=== PATIENT | female | born 1990 | race Caucasian/White ===

== ENCOUNTER 2021-07-02 11:12 | Emergency (ER) | payer OTHER, SELFPAY ==
[2021-07-02 11:13] VITALS: BP 133/91; PULSE 84; RESP 16; TEMP 37.2; O2SAT 100; BMI 20.7
--- NOTE | 2021-07-02 12:00 | EX.ED.DYSGE1 ---
HPI History of Present Illness Chief Complaint: Fatigue Informant: patient Onset/Context/Timing Onset: Month(s) (2) Context: Gradual Onset Timing: Continuous Quality: Fatigue Location: Generalized Worsened by: Nothing Relieved by: Resting Associated Symptoms Associated Symptoms: Dizziness Narrative Narrative: Patient presents with fatigue for the past 2 months. Patient states it is gradually getting worse. Patient states he feels tired all over. Patient states it gets better after some rest. Patient also admits to some dizziness and lightheadedness. Patient states she has a history of adrenal insufficiency and thinks it may be related to that. Patient states her primary care physician ordered an outpatient cortisol stimulation test. Patient states her primary care physician also referred her to the emergency department for a cortisol level to be drawn today. Patient admits to nausea. Patient denies any chest pain or shortness of breath. Patient admits to some urinary frequency but denies any dysuria or hematuria. PFSH PFS Medical History Anxiety History of adrenal disorder History of frequent headaches History of PCOS Non-smoker Home Medications citalopram 40 mg tablet 40 mg PO DAILY 03/05/21 [History Last Taken Unknown] multivitamin 1 tab PO DAILY 03/05/21 [History Last Taken Unknown] Allergy/AdvReac Type Severity Reaction Status Date / Time No Known Allergies Allergy Unverified 07/02/21 11:16 Family History Mother Arthritis Hypertension CVA (cerebral vascular accident) Grandmother Arthritis Thyroid disorder Aunt Breast cancer Surgical History History of foot surgery Social History household members: spouse current occupational status: employed 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 history of recent travel: No sexually active: Yes Smoking Status: Never smoker alcohol intake: never substance use type: does not use what type of physical activity do you participate in: other seatbelt use: always do you feel safe at home: Yes additional social history: - Akash CAST ROS ED Constitutional Constitutional ED: Denies chills or fever(s) Eyes Eyes: Denies blurry vision or change in vision ENT ENT ED: Denies rhinorrhea or sore throat Cardiovascular Cardiovascular: Denies chest pain or palpitations Respiratory/Chest Respiratory/Chest: Denies cough or dyspnea Gastrointestinal Gastrointestinal: Reports nausea; Denies vomiting Genitourinary Genitourinary ED: Reports urinary frequency; Denies dysuria or hematuria Musculoskeletal Musculoskeletal: Reports back pain; Denies neck pain Integumentary Denies abscess or rash Neurologic Neurologic: Reports headache(s) and weakness Allergic/Immunologic Allergic/Immunologic ED: Denies mouth swelling or urticaria EXAM Physical Exam Const Vital Signs: 07/02/21 11:13 Temperature 98.9 F Temperature Source Temporal Pulse Rate 84 Respiratory Rate 16 Blood Pressure 133/91 H Blood Pressure Mean 105 Pulse Ox 100 Oxygen Delivery Method Room Air Positive well nourished and well developed General Appearance ED: well developed HEENT Reports moist mucous membranes Neck supple and no JVD Resp normal respiratory effort and clear to auscultation bilaterally Cardio regular rate, regular rhythm and no murmurs GI normal to inspection, nondistended, normoactive bowel sounds and non-tender Palpation: soft Extremity normal to inspection General Extremety ED: Negative for edema or tenderness General Extremity: Negative for edema Neuro oriented x3, CN's II-XII intact bilaterally and no sensory deficits noted Sensorium / Orientation: alert Motor Exam: strength 5/5 throughout Psych mental status grossly normal Skin no rashes or lesions noted MDM MDM MDM Narrative Medical decision making narrative: Patient was given IV fluids. CBC shows a white blood cell count of 4.0. Comprehensive metabolic profile was essentially within normal limits. Serum cortisol level was slightly elevated at 24.2. Urinalysis does not show any evidence of urinary tract infection. Patient was advised of her findings. Patient was instructed to follow-up with her primary care physician in 5 to 7 days. Patient was instructed to follow-up with the cortisol stimulation test as an outpatient. Patient was instructed return if worse in any way. Patient and understood and were agreeable with the plan. All questions were answered. Discharge Plan Triage Chief Complaint: Fatigue ED Provider: Az Lowe Dx/Rx/DC Orders Clinical Impression: Fatigue Instructions: ED Weakness (Uncertain Cause) Prescriptions: No Action citalopram 40 mg tablet 10 mg PO DAILY RF: 0 multivitamin Tablet 1 tab PO DAILY RF: 0 Primary Care Provider: Lisa Clay NP Referrals: Lisa Clay NP, CURATOR OF EDUCATION-C [Primary Care Provider] - 5-7 Days Disposition Disposition: Home, Self Care
[2021-07-02 12:27] LABS: Absolute Lymphocyte Count 0.67 X10^3/uL (0.83-4.51); Basophil# 0.02 X10^3/uL; Basophil% 0.5 % (0-1); Eosinophil# 0.01 X10^3/uL; Eosinophils% 0.3 % (0-5); Hematocrit 40.9 % (37-47); Hemoglobin 13.8 g/dL (12.0-15.0); Lymphocyte # 0.67 X10^3/ul (0.83-4.51); Lymphocyte % 16.9 % (19-41); Mean Corp Hgb Conc 33.7 g/dL (32-36); Mean Corpuscular Hgb 32.5 pg (27.0-32.0); Mean Corpuscular Volume 96.2 fL (81-99); Mean Platelet Vol. 9.1 fl (6.2-12.0); Monocyte# 0.23 X10^3/uL; Monocyte% 5.8 % (0-10); NRBC Flagged by Analyzer 0 % (0-5); Neutrophil # 3.03 X10^3/uL (2.7-7.7); Neutrophil % 76.2 % (47-70); Platelet Count 153 K/mm3 (150-450); RBC Distribution Width CV 11.9 % (11.6-14.6); Red Blood Count 4.25 M/mm3 (4.2-5.4)
[2021-07-02 12:40] LABS: ALB/GLOB Ratio 1.2 RATIO (0.9-2.4); AST(SGOT) 47 U/L (15-37); Alanine Aminotransfer ALT/SGPT 152 U/L (13-56); Albumin, Serum 4.3 g/dL (3.2-5.0); Alkaline Phosphatase 60 U/L (45-117); Anion Gap 7 (5-15); BUN 11 mg/dL (7-18); BUN/Creat Ratio 13.7 RATIO (10-20); Calcium,Total 9.1 mg/dL (8.5-10.1); Chloride 105 mmol/L (98-107); EST Glomerular Filtration Rate 88 mL/min (>60); Est Glom Filt Rate - Afr Amer 107 mL/min (>60); Estimated Creatinine Clearance 105.79 ml/min; Globulin 3.7 g/dL (2.2-4.2); Glucose 104 mg/dL (74-106); Potassium 3.9 mmol/L (3.5-5.1); Sodium Level 140 mmol/L (136-145)
[2021-07-02 13:20] VITALS: PULSE 62; RESP 15; O2SAT 100
[2021-07-02 13:36] LABS: Mucous, Urine 0 SEEN /hpf (<or=2+); Red Blood Cells-Urine 0 SEEN /hpf (0-5); Squamous Epithelial Cells - UA 0 SEEN /hpf (5-10); White Blood Cells 0 SEEN /hpf (0-5)
[2021-07-02 13:45] LABS: Color, Urine Yellow (Yellow); Glucose, Dipstick Normal (Normal); Ketone-Dipstick Negative (Negative); Leukocyte Esterase-Dipstick Negative /ul (Negative); Nitrite-Dipstick Negative (Negative); Occult Blood-Urine Negative /ul (Negative); Protein-Dipstick Negative (Negative); Specific Gravity, Urine 1.015 (1.002-1.030); Urine Bilirubin Dipstick Negative (Negative); Urine Clarity Cloudy (Clear); Urine Urobilinogen Normal (Normal)
[2021-07-02 13:55] LABS: Amorphous Sediment 3+; Bacteria 1+ /hpf (None Seen)
[2021-07-02 15:03] VITALS: BP 122/74; PULSE 88; RESP 15; O2SAT 98
== END 2021-07-02 15:04 | disposition home or self-care (01) ==
PROVIDERS: Emergency Provider Emergency Medicine; PCP Nurse Practitioner
DX: R53.83 Other fatigue (principal); F41.9 Anxiety disorder, unspecified; Z79.899 Other long term (current) drug therapy
CPT/HCPCS: 80053; 81001; 82533; 85025; 99283; J7030; A4216

== ENCOUNTER 2021-11-12 08:14 | Outpatient (CLI) | payer OTHER, SELFPAY ==
--- NOTE | 2021-11-12 08:20 | US_ITS ---
STUDY: ULTRASOUND OF THE FEMALE PELVIS - COMPLETE REASON FOR EXAM: Female, 30 years old. Infertility -- AUB LMP: 10/29/2021. TECHNIQUE: Transabdominal and Transvaginal TECHNICAL QUALITY: Adequate. COMPARISON: None. FINDINGS: The uterus is retroverted and is in a midline position. The uterus measures 7.1 cm x 5.5 cm x 4.6 cm. Normal uterine cervix. The endometrium measures 2.0 mm in thickness, and is hyperechoic. There is no demonstrated endometrial mass. There is no demonstrated myometrial mass. I.U.D. - The patient does not have an I.U.D. The right ovary is visualized. The right ovary measures 3 cm x 2.7 cm x 2.2 cm. There is no right ovarian cyst or ovarian mass. There is no visualized right adnexal mass or complex lesion. There is normal arterial and normal venous vascularity. The left ovary is visualized. The left ovary measures 1.6 cm x 1.9 cm x 1.7 cm. There is no left ovarian cyst or ovarian mass. There is no visualized left adnexal mass or complex lesion. There is normal arterial and normal venous vascularity. There is minimal fluid in the cul-de-sac. The pre void volume of the bladder was 363 ml. US/Transvaginal Non- IMPRESSION: Normal female pelvis. Electronically Signed: Chirag Green MD at 14:03 EST ,
--- NOTE | 2021-11-12 08:20 | US_ITS ---
STUDY: ULTRASOUND OF THE FEMALE PELVIS - COMPLETE REASON FOR EXAM: Female, 30 years old. Infertility -- AUB LMP: 10/29/2021. TECHNIQUE: Transabdominal and Transvaginal TECHNICAL QUALITY: Adequate. COMPARISON: None. FINDINGS: The uterus is retroverted and is in a midline position. The uterus measures 7.1 cm x 5.5 cm x 4.6 cm. Normal uterine cervix. The endometrium measures 2.0 mm in thickness, and is hyperechoic. There is no demonstrated endometrial mass. There is no demonstrated myometrial mass. I.U.D. - The patient does not have an I.U.D. The right ovary is visualized. The right ovary measures 3 cm x 2.7 cm x 2.2 cm. There is no right ovarian cyst or ovarian mass. There is no visualized right adnexal mass or complex lesion. There is normal arterial and normal venous vascularity. The left ovary is visualized. The left ovary measures 1.6 cm x 1.9 cm x 1.7 cm. There is no left ovarian cyst or ovarian mass. There is no visualized left adnexal mass or complex lesion. There is normal arterial and normal venous vascularity. There is minimal fluid in the cul-de-sac. The pre void volume of the bladder was 363 ml. US/Pelvic (Non ) IMPRESSION: Normal female pelvis. Electronically Signed: Chirag Green MD at 14:03 EST ,
== END 2021-11-12 23:59 | disposition home or self-care (01) ==
PROVIDERS: PCP Nurse Practitioner; Referring Provider Obstetrics & Gynecology; Visit Provider Obstetrics & Gynecology
DX: N97.9 Female infertility, unspecified (principal); N93.9 Abnormal uterine and vaginal bleeding, unspecified
CPT/HCPCS: 76830; 76856

== ENCOUNTER 2021-12-09 09:14 | Outpatient (CLI) | payer OTHER, SELFPAY ==
[2021-12-09 10:10] LABS: Estradiol 21.1 pg/mL; Follicle Stimulating Hormone 2.2 mIU/mL; Prolactin 3.8 ng/mL
[2021-12-11 14:11] LABS: DHEA Sulfate 74.4 ug/dL (84.8-378.0)
[2021-12-11 14:41] LABS: Testosterone Free 0.4 pg/mL (0.0-4.2)
[2021-12-13 22:11] LABS: 17-Hydroxyprogesterone 27 ng/dL (.)
== END 2021-12-09 23:59 | disposition home or self-care (01) ==
LOC: PAVLAB 09:15
PROVIDERS: PCP Nurse Practitioner; Referring Provider Obstetrics & Gynecology; Visit Provider Obstetrics & Gynecology
DX: N97.9 Female infertility, unspecified (principal); N93.9 Abnormal uterine and vaginal bleeding, unspecified; Z87.42 Personal history of other diseases of the female genital tract
CPT/HCPCS: 36415; 82627; 82670; 83001; 83498; 84146; 84402; 84443; 82626

== ENCOUNTER → 2022-04-22 | Outpatient (CLI) | payer OTHER, SELFPAY ==
[2022-04-24 12:58] LABS: DHEA Sulfate 97.9 ug/dL (84.8-378.0)
== END | disposition home or self-care (01) ==
LOC: PAVLAB 09:14
PROVIDERS: PCP Nurse Practitioner; Referring Provider Obstetrics & Gynecology; Visit Provider Obstetrics & Gynecology
DX: N93.9 Abnormal uterine and vaginal bleeding, unspecified (principal)
CPT/HCPCS: 36415; 82627; 82626

== ENCOUNTER → 2022-06-02 | Outpatient (CLI) | payer OTHER, SELFPAY ==
[2022-06-02 10:04] LABS: Progesterone Level 11.78 ng/mL (See Comment)
== END | disposition home or self-care (01) ==
LOC: PAVLAB 09:09
PROVIDERS: Referring Provider Obstetrics & Gynecology; Visit Provider Obstetrics & Gynecology
DX: E28.2 Polycystic ovarian syndrome (principal)
CPT/HCPCS: 36415; 84144

== ENCOUNTER → 2022-12-18 | Outpatient (CLI) | payer OTHER, SELFPAY ==
[2022-12-22 01:06] LABS: Chlamydia By Nucleic Acid AMP Negative (Negative)
[2022-12-22 12:25] LABS: Gonococcus By Nucleic Acid AMP Negative (Negative)
[2022-12-27 09:02] LABS: HPV APTIMA, High Risk Negative (Negative)
== END | disposition home or self-care (01) ==
LOC: LABSPEC 13:33
PROVIDERS: Referring Provider Obstetrics & Gynecology; Visit Provider Obstetrics & Gynecology
DX: O09.90 Supervision of high risk pregnancy, unspecified, unspecified trimester (principal)
CPT/HCPCS: 87086; 87088; 87491; 87591; 87624; 88175; G0145

== ENCOUNTER → 2023-01-15 | Outpatient (CLI) | payer OTHER, SELFPAY ==
[2023-01-15 11:03] LABS: Absolute Lymphocyte Count 0.94 X10^3/uL (0.83-4.51); Absolute Neutrophil Count 5.2 X10^3/uL (2.0-7.7); Basophil# 0.03 X10^3/uL; Basophil% 0.5 % (0-1); Eosinophil# 0.02 X10^3/uL; Eosinophils% 0.3 % (0-5); Hematocrit 36.3 % (37-47); Hemoglobin 12.3 g/dL (12.0-15.0); Lymphocyte # 0.94 X10^3/ul (0.83-4.51); Lymphocyte % 14.3 % (19-41); Mean Corp Hgb Conc 33.9 g/dL (32-36); Mean Corpuscular Hgb 33.1 pg (27.0-32.0); Mean Corpuscular Volume 97.6 fL (81-99); Mean Platelet Vol. 8.3 fl (6.2-12.0); Monocyte# 0.37 X10^3/uL; Monocyte% 5.6 % (0-10); NRBC Flagged by Analyzer 0 % (0-5); Neutrophil % 78.8 % (47-70); Platelet Count 189 K/mm3 (150-450); RBC Distribution Width CV 13.1 % (11.6-14.6); RBC Distribution Width SD 46.4 fl (35.1-43.9); Red Blood Count 3.72 M/mm3 (4.2-5.4); White Blood Count 6.6 K/mm3 (4.4-11.0)
[2023-01-15 11:55] LABS: NATERA MAILED SPECIMEN
[2023-01-15 12:17] LABS: HIV - WCH Non-Reactive (Nonreactive); Hepatitis B Surface Antigen Non-Reactive (Nonreactive); Hepatitis C Antibody Non-Reactive (Nonreactive); Rubella IgG Reactive (Nonreactive); Syphilis Antibodies Non-reactive
== END | disposition home or self-care (01) ==
LOC: PAVLAB 10:45
PROVIDERS: Referring Provider Obstetrics & Gynecology; Visit Provider Obstetrics & Gynecology
DX: O09.90 Supervision of high risk pregnancy, unspecified, unspecified trimester (principal)
CPT/HCPCS: 36415; 85025; 86703; 86762; 86780; 86803; 86850; 86900; 86901; 87340

== ENCOUNTER → 2023-04-24 | Outpatient (CLI) | payer OTHER, SELFPAY ==
[2023-04-24 12:27] LABS: Absolute Lymphocyte Count 0.84 X10^3/uL (0.83-4.51); Absolute Neutrophil Count 5.3 X10^3/uL (2.0-7.7); Basophil# 0.02 X10^3/uL; Basophil% 0.3 % (0-1); Eosinophil# 0.02 X10^3/uL; Eosinophils% 0.3 % (0-5); Hematocrit 33.3 % (37-47); Lymphocyte # 0.84 X10^3/ul (0.83-4.51); Lymphocyte % 12.9 % (19-41); Mean Corpuscular Hgb 33.5 pg (27.0-32.0); Mean Corpuscular Volume 101.5 fL (81-99); Mean Platelet Vol. 8.6 fl (6.2-12.0); Monocyte# 0.32 X10^3/uL; Monocyte% 4.9 % (0-10); NRBC Flagged by Analyzer 0 % (0-5); Neutrophil # 5.28 X10^3/uL (2.7-7.7); Neutrophil % 81.1 % (47-70); Platelet Count 172 K/mm3 (150-450); RBC Distribution Width CV 12.5 % (11.6-14.6); Red Blood Count 3.28 M/mm3 (4.2-5.4); White Blood Count 6.5 K/mm3 (4.4-11.0)
[2023-04-24 12:45] LABS: Glucose Challenge Gest 1H 50g 93 mg/dL (70-140)
[2023-04-24 13:31] LABS: HIV - WCH Non-Reactive (Nonreactive); Syphilis Antibodies Non-reactive
== END | disposition home or self-care (01) ==
LOC: LAB 11:50
PROVIDERS: PCP Nurse Practitioner Family; Referring Provider Obstetrics & Gynecology; Visit Provider Obstetrics & Gynecology
DX: O09.90 Supervision of high risk pregnancy, unspecified, unspecified trimester (principal); Z3A.00 Weeks of gestation of pregnancy not specified
CPT/HCPCS: 36415; 82950; 85025; 86703; 86780

== ENCOUNTER → 2023-06-26 | Outpatient (CLI) | payer OTHER, SELFPAY | END | disposition home or self-care (01) | LOC: LABSPEC 16:29 | PROVIDERS: PCP Nurse Practitioner Family; Referring Provider Advanced Practice Midwife; Visit Provider Advanced Practice Midwife | DX: Z34.90 Encounter for supervision of normal pregnancy, unspecified, unspecified trimester (principal); Z3A.00 Weeks of gestation of pregnancy not specified | CPT/HCPCS: 87081 ==

== ENCOUNTER 2023-07-06 16:15 | Inpatient (IN) | payer OTHER, SELFPAY ==
[2023-07-06] MEDS: Lactated Ringers 1,000 ML 50 ML IV (16:45)
[2023-07-06 17:16] LABS: Absolute Lymphocyte Count 1.02 X10^3/uL (0.83-4.51); Absolute Neutrophil Count 5.2 X10^3/uL (2.0-7.7); Basophil# 0.01 X10^3/uL; Basophil% 0.1 % (0-1); Eosinophil# 0.02 X10^3/uL; Eosinophils% 0.3 % (0-5); Hematocrit 32.1 % (37-47); Hemoglobin 10.6 g/dL (12.0-15.0); Lymphocyte # 1.02 X10^3/ul (0.83-4.51); Lymphocyte % 15.2 % (19-41); Mean Corpuscular Hgb 32.6 pg (27.0-32.0); Mean Corpuscular Volume 98.8 fL (81-99); Mean Platelet Vol. 8.9 fl (6.2-12.0); Monocyte# 0.41 X10^3/uL; Monocyte% 6.1 % (0-10); NRBC Flagged by Analyzer 0 % (0-5); Neutrophil # 5.24 X10^3/uL (2.7-7.7); Neutrophil % 77.9 % (47-70); Platelet Count 139 K/mm3 (150-450); RBC Distribution Width CV 13.2 % (11.6-14.6); RBC Distribution Width SD 47.7 fl (35.1-43.9); Red Blood Count 3.25 M/mm3 (4.2-5.4); White Blood Count 6.7 K/mm3 (4.4-11.0)
--- NOTE | 2023-07-06 17:32 | HP.PCM.OB_ITS ---
HPI - General General Date of Admission: 07/06/23 Date of Service: 07/06/23 Chief Complaint: induction of labor HPI Narrative GLEN WEINER, is a 32 F who presents at 37+6 for induction of labor for IUGR and triple nuchal cord on scan today. serial growth decreasing EFW 10% with AC<1%. GBS negative. Maternal Data Information AKIN Calculator Estimated Delivery Date Method Current WG Current Estimate 07/21/23 LMP (Certain) 37w 6d Other Estimates 07/21/23 Ultrasound #1 37w 6d PFSH PFSH Medical History Abnormal uterine bleeding Anxiety Back pain History of adrenal disorder History of frequent headaches History of PCOS Non-smoker PCOS (polycystic ovarian syndrome) Segmental and somatic dysfunction of cervical region Segmental and somatic dysfunction of lumbar region Segmental and somatic dysfunction of pelvic region Segmental and somatic dysfunction of thoracic region Home Medications citalopram 10 mg tablet (Celexa) 10 mg PO DAILY 11/01/21 [History Last Taken Unknown] buspirone 5 mg tablet 5 mg PO BID 12/10/22 [History Last Taken Unknown] prenat.vits,nancy,ouo-nofu-ngwyi 1 tab PO DAILY 12/10/22 [History Last Taken Unknown] ondansetron HCl 4 mg tablet 4 mg PO Q6H PRN nausea and vomiting #60 tabs 12/18/22 [Rx Last Taken Unknown] ondansetron 4 mg disintegrating tablet 4 mg PO Q6H PRN nausea and vomiting #60 tabs 06/22/23 [Rx Last Taken Unknown] Allergy/AdvReac Type Severity Reaction Status Date / Time No Known Allergies Allergy Verified 07/02/23 13:08 Family History Mother Arthritis Hypertension CVA (cerebral vascular accident) Grandmother Arthritis Thyroid disorder Aunt Breast cancer Surgical History History of foot surgery Social History adopted: No household members: spouse housing: house current occupational status: employed 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 current occupational exposures/hazards: No pets and animals: Yes pets and animals: dog(s) history of recent travel: No sexually active: Yes Smoking Status: Never smoker alcohol intake: never substance use type: does not use well-balanced diet: daily or most days caffeine: Yes Type: coffee what type of physical activity do you participate in: other seatbelt use: always do you feel safe at home: Yes additional social history: - Akash History 1 Elective abortions Hx Para Spontaneous abortions Hx # Term Pregnancies Ectopic pregnancies Hx # Pregnancies Multiple births # of living children Visit Details Expected Delivery Route/Plan Labor Preferences- CB/BF classes: Discussed labor support person: Akash labor intervention preferences: possible epidural pain management options preferred: possible epidural cut cord/dad catch: yes : yes PP control planned: discussed discussed possible routes of delivery and associated risks: [] special requests: [] Plans Covid status: unvaccinated Flu vaccine: no Tdap vaccine: considering Rhogam: na LARC form signed: yes Problem list reviewed and updated with the most current plan of care details and appropriate orders placed. Relevant counseling for the gestational age provided. Continue routine care and follow up unless otherwise noted in visit notes/problem list details OB Flowsheet Initial Weight: Not Recorded Date -?-?-?-?-?-?-?-?-?-?-?-?- EGA Weight BP Urine Prot -?-?-?-?-?-?-?-?-?-?-?-?- Glucose FHR FuHt Pres Dilation -?-?-?-?-?-?-?-?-?-?-?-?- Effaced St Visit Note 12/18/22 -?-?-?-?-?-?-?-?-?-?-?-?- 9w 2d 165 lb 4 oz 114/68 -?-?-?-?-?-?-?-?-?-?-?-?- 185 -?-?-?-?-?-?-?-?-?-?-?-?- JV- single live IUP measuring 9 weeks 2 days on us an consistent with LMP. AKIN 07/21/23, thinks wants nipt but wants to check with insurance will know more next visit. 01/15/23 -?-?-?-?-?-?-?-?-?-?-?-?- 13w 2d 159 lb 121/67 Negative -?-?-?-?-?-?-?-?-?-?-?-?- Negative 165 -?-?-?-?-?-?-?-?-?-?-?-?- JV- still some n ausea. NIPT ordered. pt to go down today for new ob labs. anatomy ultrasound ordered. 02/13/23 -?-?-?-?-?-?-?-?-?-?-?-?- 17w 3d 160 lb 8 oz 123/67 -?-?-?-?-?-?-?-?-?-?-?-?- 150 -?-?-?-?-?-?-?-?-?-?-?-?- KW- + FM, no vb, lof,cramping. mood stable. labs discussed. afp offered. declines at this time. US reordered and number given to call to schedule US. Fresh test discussed. 03/10/23 -?-?-?-?-?-?-?-?-?-?-?-?- 21w 0d 166 lb 2 oz 107/67 Nega tive -?-?-?-?-?-?-?-?-?-?-?-?- Negative 160 20 -?-?-?-?-?-?-?-?-?-?-?-?- Kw-+FM. no vb/lo f/ctx. No concerns. discussed 28 week labs plans fresh test- repeat US at 28 weeks for placental location 04/10/23 -?-?-?-?-?-?--?-?-?-?-?-?- 25w 3d 164 lb 6 oz 116/77 Nega tive -?-?-?-?-?-?-?-?-?-?-?-?- Negative 157 25 -?-?-?-?-?-?-?-?-?-?-?-?- JV- pt will be d oing the Fresh test for gct. instructions given. no lof, vaginal bleeding, or dec fm. 04/30/23 -?-?-?-?-?-?-?-?-?-?-?-?- 28w 2d 169 lb 8 oz 106/65 Nega tive -?-?-?-?-?--?-?-?-?-?-?-?- Negative 147 -?-?-?-?-?-?-?-?-?-?-?-?- -No VB, LOF. G ood Fm. Has MFM appt schedule. Reactive NST today. Larc. Nl 28 wk labs 05/06/23 -?-?-?-?-?-?-?-?-?-?-?-?- 29w 1d 169 lb 4 oz 118/70 Nega tive -?-?-?-?-?-?-?-?-?-?-?-?- Negative 140 -?-?-?-?-?-?-?-?-?-?-?-?- NST only reac tive 06/04/23 -?-?-?-?-?-?-?-?-?-?-?-?- 33w 2d 171 lb 8 oz 118/70 118/70 Negative -?-?-?-?-?-?-?-?-?-?-?-?- Negative 140 -?-?-?--?-?-?-?-?-?-?-?-?- SM- no vb lof go od fm no regular ctx 06/18/23 -?-?-?-?-?-?-?-?-?-?-?-?- 35w 2d 174 lb 2 oz 126/74 Nega tive -?-?-?-?-?-?-?-?-?-?-?-?- Negative 140 -?-?-?-?-?-?-?-?-?-?-?-?- -NST only reac tive. Requested flu vaccine 06/26/23 -?-?-?-?-?-?-?-?-?-?-?-?- 36w 3d 175 lb 2 oz 118/72 Nega tive -?-?-?-?-?-?-?-?-?-?-?-?- Negative 125 1 -?-?-?-?-?-?-?-?-?-?-?-?- 60 -2 KW- no vb/ lof/ctx. good fm. NST reactive. GBS today. AG on IOL at 38-39 weeks 07/02/23 -?-?-?-?-?-?-?-?-?-?-?-?- 37w 2d 177 lb 121/75 Negative -?-?-?-?-?-?-?-?-?-?-?-?- Negative 140 0 -?-?-?-?-?-?-?-?--?-?-?-?- JV- NST reactive , cervix closed. changing iol to thursday pm cytotec NST FHR Rate Baby A Baseline: 140 Variability:: Moderate Accelerations:: 15 x 15 Decelerations:: None NST Reactive:: Yes FHR Category:: Category I ROS Cardiovascular Cardiovascular: Denies abdominal pain, chest pain, diaphoresis or dyspnea Respiratory/Chest Respiratory/Chest: Denies change in mental status, chest congestion, chest tightness, cough, shortness of breath at rest, shortness of breath with exertion, breast mass, breast pain, breast skin changes, breast swelling, change in breast shape or nipple discharge Genitourinary Genitourinary: Reports change in urinary stream Musculoskeletal Musculoskeletal: Reports none Integumentary Integumentary: Reports none Neurologic Neurologic: Reports none Psychiatric Psychiatric: Reports none Endocrine Endocrinology: Reports none Hematologic/Lymphatic Hematologic/Lymphatic: Reports none Allergic/Immunologic Allergic/Immunologic: Reports none Physical Exam Const alert, oriented x3 and no apparent distress General Appearance: cooperative, comfortable and well kempt Orientation / Consciousness: awake and oriented to person Exam Limitations: no limitations HEENT normocephalic Neck full ROM Chest inspection of chest normal Resp normal respiratory effort, normal air movement and no retractions Effort and Inspection: able to speak in complete sentences and symmetric chest movement Cardio regular rate Peripheral Pulses: pulses 2+ throughout GI normal to inspection, nondistended, normoactive bowel sounds Inspection: gravid no CVA tenderness and appearance of the vagina normal External Female Exam: normal appearance of the urethra; Negative for external lesion OB / External & Speculum: external exam normal Manual OB Exam: estimated gestational size appropriate, presentation cephalic, dilated 1, effaced 20 and station -3 Uterus Palpation: Negative for uterus tender Extremity normal to inspection Skin no rashes or lesions noted Neuro deep tendon reflexes 2+ bilaterally and gait normal Motor Exam: strength 5/5 throughout and clonus absent Psych Activity / Motor Behavior: appropriate eye contact Speech: normal speech Labs Labs Labs: Blood Type O POSITIVE Antibody Screen NEGATIVE Hct 32.1 % (37-47) L Hgb 10.6 g/dL (12.0-15.0) L Pap Smear Negative Syphilis Total Ab Non-reactive Rubella IgG Antibody Reactive (Nonreactive) Hep Bs Antigen Non-Reactive (Nonreactive) Chlamydia DNA (ANDRES) Negative (Negative) Neisseria gonorrhoeae DNA (ANDRES) Negative (Negative) HIV 1&2 Antibody Non-Reactive (Nonreactive) Glucose 1 Hr 50 gm 93 mg/dL (70-140) Miscellaneous Test Assessment & Plan (1) IUGR (intrauterine growth restriction) affecting care of mother: QUALIFIERS: Fetus number: single or unspecified fetus Trimester: third trimester Qualified Code(s): O36.5930 - Maternal care for other known or suspected poor growth, third trimester, not applicable or unspecified COMMENT: recommend immediate delivery per [facility] NC x 3 seen today 06/30: EFW 10th%m AC <1st % (2) Depression: QUALIFIERS: Depression Type: unspecified Qualified Code(s): F32.A - Depression, unspecified COMMENT: celexa 10mg. stable (3) Supervision of high risk , antepartum: COMMENT: PRR, , AKIN 07/21/23, Spouse Akash (4) : QUALIFIERS: Weeks of gestation: 37 weeks Qualified Code(s): Z3A.37 - 37 weeks gestation of COMMENT: GBS neg, NIPT low risk, nl anatomy PLAN: Plan admit to for IOL with any and randall Tate in for evaluation and exam, to place agarwal bulb. agrees with co- management of care for IUGR induction. discussed modes of delivery
[2023-07-06 17:47] LABS: Syphilis Antibodies Non-reactive
[2023-07-06] MEDS: 0.9% Normal Saline Single 100 ML IV.SOLN. INTRA-UTER (17:56)
[2023-07-06 18:29] VITALS: BMI 25.2
[2023-07-06 19:40] VITALS: BP 128/84; PULSE 71; TEMP 36.5
[2023-07-06 21:34] VITALS: BP 137/83; PULSE 65; TEMP 36.8
[2023-07-06] MEDS: Oxytocin 15 Units/NS 250ml 15 UNITS/250 ML IV.SOLN 2 UNITS IV (22:03)
[2023-07-06 23:45] VITALS: BP 134/83; PULSE 64; TEMP 36.7
[2023-07-07] VITALS (41 sets, daily range): BP systolic 98–144; BP diastolic 52–85; PULSE 54–91; RESP 14–18; TEMP 36.1–37.7; O2SAT 96–100
--- NOTE | 2023-07-07 | PLAC_PTH ---
PATIENT: GLEN WEINER LOC: [facility] U#:[id number] AGE/SX: 32/F ROOM: [facility] RE07/06/[address]: Dr. Corrine Zavaleta MD : 1990 BED: 1 DIS: 07/10/2023 SPEC #: [id number] RECD: 07/07/23 13:50 STATUS: ROS SURJIT #: [id number] KARAN: 07/07/23 00:[address]: Corrine Zavaleta DEPT: SURGICAL PATHOLOGY RECD BY: Carole Guardado ENTERED: 07/08/23 10:42 SP TYPE: PLACENTA OTHR DR: Kerri Cardoza NP-Deric Tissues: Placenta, NOS Procedures: Surgery Specimen Level V HEADER OPERATION: Primary section PRE-OP DIAGNOSIS: IUGR TISSUE SUBMITTED: Placenta MICROSCOPIC DIAGNOSIS [place] placenta (413 gm): Umbilical cord - trivascular with no evidence of inflammation. Placental membranes - mild acute deciduitis and chorionitis. Placental disc - Sarahy-Greg change, focal hypovascularity of villi and mildly increased intraparenchymal fibrin plaque and focal organizing intraparenchymal hemorrhage. AM:bailey 07/09/2023 MICROSCOPIC DESCRIPTION Slides are reviewed. GROSS DESCRIPTION SPECIMEN: PLACENTA / CLINICAL INFORMATION: A. Weight: 2.3 kg B. Gestational Age: 38 weeks C. Sex: Female PLACENTAL WEIGHT (POST FIXATION): 413 gm PLACENTAL DIMENSIONS: 17.5 x 14.0 x 3.0 cm PLACENTAL SHAPE: Usual ovoid PLACENTAL WEIGHT FOR GESTATIONAL AGE: Within 10-99th percentile MEMBRANES - Present A. Insertion: Marginal B. Site of rupture from edge: At edge of placental disc C. Color of membrane: Meyer-aden D. Abnormalities: None UMBILICAL CORD - Present A. Color: Meyer-aden B. Insertion: Eccentric C. Length: 47.0 cm D. Diameter: 1.0 cm E. Number of vessels: Three F. Abnormalities: None PLACENTAL DISC - Present A. Color of surface: Meyer-aden B. surface abnormalities: None C. Maternal cotyledons: Intact with minimal tears D. Attached retro placental clot: No clot E. Cut surface: Dark red and spongy F. Lesions: None G. Separate clot: 5.0 x 3.0 x 0.8 cm SECTIONS SUBMITTED: 1. Umbilical cord ( end notched) 2. Umbilical cord, placental end 3. Membrane roll 4. Placental disc, and maternal surfaces 5. Placental disc, and maternal surfaces 6. Placental disc, and maternal surfaces AM:bailey 07/08/2023 TC:5 CPT: 27210
[2023-07-07] MEDS: Ondansetron 4 MG/2 ML Vial IV ×2 (01:31→10:29)
[2023-07-07] MEDS: LACTATED RINGERS 500 ML 999 ML IV ×2 (03:36→04:28)
[2023-07-07] MEDS: fentaNYL-bupivacaine (epidural) 100 ML BAG EPIDURAL ×2 (04:05→08:33)
--- NOTE | 2023-07-07 05:14 | PN_ITS ---
Progress Note patient s/p epidural, low bps current tracing: FHT: 145 minimal variability recurrent lates, cat II resolved with position changes, pitocin off. no 145 Moderate variability reactive no decelerations category I tracing [place]: 2-3 Contractions reviewed tracing abnormalities since last note: see above A/P: pitocin restarted at half, /-3 unable to Rupture membranes, discussed with patient about head descent concerns due to triple nuchal cord, but will continue expectant management at this time.
[2023-07-07] MEDS: Lactated Ringers 1,000 ML 200 ML IV ×2 (05:57→10:21)
--- NOTE | 2023-07-07 07:27 | PN.OBGYN_ITS ---
Subjective Subjective Comfortable with epidural current tracing: FHT: 140 Moderate variability reactive no decelerations category I tracing [place]: 3-4 minute Contractions SVE 7/90/-2 A/P: continue position changes increase pitocin per protocol epidural per anesthesia AROM with next exam anticipate Objective Data Objective Data Vital Signs: Vital Signs Temp Pulse BP Pulse Ox 98.4 F 60 120/68 98 07/07/23 07:15 07/07/23 07:15 07/07/23 07:15 07/07/23 07:15 Weight: 176 lb 2.389 oz Body Mass Index (BMI) 25.2 Intake & Output: Intake and Output for Last 24 Hours 07/05/23 07/06/23 07/07/23 23:59 23:59 23:59 Intake Total 6.83 / 6.83 Output Total 700 / 700 Balance 6.83 / 6.83 1308.03 / 1308.03 Lab / Micro Data 07/06/23 16:45 Labs: Laboratory Results - last 24 hr 07/06/23 16:45: WBC 6.7, RBC 3.25 L, Hgb 10.6 L, Hct 32.1 L, MCV 98.8, MCH 32.6 H, MCHC 33.0, RDW Std Deviation 47.7 H, RDW Coeff of Janice 13.2, Plt Count 139 L, MPV 8.9, Immature Gran % (Auto) 0.400, Neut % (Auto) 77.9 H, Lymph % (Auto) 15.2 L, [place] % (Auto) 6.1, Eos % (Auto) 0.3, Baso % (Auto) 0.1, Absolute Neuts (auto) 5.2, Absolute Lymphs (auto) 1.02, Nucleated RBC % 0, Syphilis Total Ab Non- reactive, Blood Type O POSITIVE, Antibody Screen NEGATIVE Assessment & Plan (1) IUGR (intrauterine growth restriction) affecting care of mother: QUALIFIERS: Fetus number: single or unspecified fetus Trimester: third trimester Qualified Code(s): O36.5930 - Maternal care for other known or suspected poor growth, third trimester, not applicable or unspecified COMMENT: recommend immediate delivery per MFM NC x 3 seen today 06/30: EFW 10th%m AC <1st % (2) Depression: QUALIFIERS: Depression Type: unspecified Qualified Code(s): F32.A - Depression, unspecified COMMENT: celexa 10mg. stable (3) Segmental and somatic dysfunction of sacral region: (4) Supervision of high risk , antepartum: COMMENT: PRR, , AKIN 07/21/23, Spouse Akash (5) : QUALIFIERS: Weeks of gestation: 37 weeks Qualified Code(s): Z3A.37 - 37 weeks gestation of COMMENT: GBS neg, NIPT low risk, nl anatomy Charges/Coding Multi Select Codes Urinary/Genital Urinary/Genital CPT Codes: No Charge
[2023-07-07] MEDS: Cefazolin 2 GM in 0.9% Normal Saline (100mL Bag) 100 ML IV (10:52)
[2023-07-07] MEDS: Methylergonovine 0.2 MG/ML Ampul IM (11:07)
--- NOTE | 2023-07-07 11:58 | PN.OBGYN_ITS ---
Subjective Subjective comfortable with epidural current tracing: FHT: 155 Moderate variability reactive occasional variable. Overall reassuring. category II tracing [place]: 2-3 minute Contractions SVE 10/100/0 AROM-at 1035 for clear fluid. A/P: Breech presentation identified. Bedside US done to confirm. Dr Zavaleta called and already en route to unit. Patient prepped for Primary C/S. Primary C/S for breech presentation. Objective Data Objective Data Vital Signs: Vital Signs Temp Pulse BP Pulse Ox 97.9 F 56 L 129/84 H 99 07/07/23 10:11 07/07/23 10:11 07/07/23 10:11 07/07/23 10:11 Weight: 176 lb 2.389 oz Body Mass Index (BMI) 25.2 Intake & Output: Intake and Output for Last 24 Hours 07/05/23 07/06/23 07/07/23 23:59 23:59 23:59 Intake Total 6.83 / 6.83 2888.03 / 2888.03 Output Total 1150 / 1150 Balance 6.83 / 6.83 1738.03 / 1738.03 Lab / Micro Data Attestation: I reviewed the patient's lab results. 07/06/23 16:45 Labs: Laboratory Results - last 24 hr 07/06/23 16:45: WBC 6.7, RBC 3.25 L, Hgb 10.6 L, Hct 32.1 L, MCV 98.8, MCH 32.6 H, MCHC 33.0, RDW Std Deviation 47.7 H, RDW Coeff of Janice 13.2, Plt Count 139 L, MPV 8.9, Immature Gran % (Auto) 0.400, Neut % (Auto) 77.9 H, Lymph % (Auto) 15.2 L, [place] % (Auto) 6.1, Eos % (Auto) 0.3, Baso % (Auto) 0.1, Absolute Neuts (auto) 5.2, Absolute Lymphs (auto) 1.02, Nucleated RBC % 0, Syphilis Total Ab Non- reactive, Blood Type O POSITIVE, Antibody Screen NEGATIVE Assessment & Plan (1) IUGR (intrauterine growth restriction) affecting care of mother: QUALIFIERS: Fetus number: single or unspecified fetus Trimester: third trimester Qualified Code(s): O36.5930 - Maternal care for other known or suspected poor growth, third trimester, not applicable or unspecified COMMENT: recommend immediate delivery per MFM NC x 3 seen today 06/30: EFW 10th%m AC <1st % (2) Depression: QUALIFIERS: Depression Type: unspecified Qualified Code(s): F32.A - Depression, unspecified COMMENT: celexa 10mg. stable (3) Segmental and somatic dysfunction of sacral region: (4) Supervision of high risk , antepartum: COMMENT: PRR, , AKIN 07/21/23, Spouse Akash (5) : QUALIFIERS: Weeks of gestation: 37 weeks Qualified Code(s): Z3A.37 - 37 weeks gestation of COMMENT: GBS neg, NIPT low risk, nl anatomy Charges/Coding Multi Select Codes Urinary/Genital Urinary/Genital CPT Codes: No Charge
[2023-07-07] MEDS: Oxytocin 15 Units/NS 250ml 15 UNITS/250 ML IV.SOLN 83 UNITS IV (12:48)
[2023-07-07] MEDS: Ketorolac 30 MG/ML Syringe IV ×2 (12:48→18:31)
[2023-07-07] MEDS: Acetaminophen 500 MG Tablet 1000 MG PO ×2 (16:37→22:37)
--- NOTE | 2023-07-07 17:17 | NURSING ---
Epidural catheter taken out by this RN at 1506, blue tip intact. Confirmed by Melissa WEINBERG
[2023-07-07] MEDS: 0.9% Saline Lock 10 ML Syringe IV (18:31)
--- NOTE | 2023-07-07 21:06 | NURSING ---
Pt ambulated at 2039. Pt ambulation delayed due to patient request due to pain level. At this time pt states pain level is tolerable.
--- NOTE | 2023-07-07 22:42 | NURSING ---
agarwal catheter removed by this RN
[2023-07-08] VITALS (8 sets, daily range): BP systolic 107–125; BP diastolic 60–78; PULSE 69–88; RESP 16–18; TEMP 36.2–37.7; O2SAT 96–98
[2023-07-08] MEDS: Ketorolac 30 MG/ML Syringe IV ×2 (01:30→08:37)
[2023-07-08] MEDS: Acetaminophen 500 MG Tablet 1000 MG PO ×4 (05:00→22:17)
[2023-07-08 06:12] LABS: Hematocrit 27.5 % (37-47); Mean Corp Hgb Conc 32.7 g/dL (32-36); Mean Corpuscular Hgb 32.7 pg (27.0-32.0); Mean Platelet Vol. 8.5 fl (6.2-12.0); Platelet Count 108 K/mm3 (150-450); RBC Distribution Width CV 13.5 % (11.6-14.6); RBC Distribution Width SD 48.5 fl (35.1-43.9); Red Blood Count 2.75 M/mm3 (4.2-5.4); White Blood Count 13.4 K/mm3 (4.4-11.0)
--- NOTE | 2023-07-08 07:59 | PCM.PN.OB ---
Subjective Subjective Patient doing well without complaints. Tolerating PO. Ambulating without difficulty. Needed repeat cath for urine earlier today. Feeding well. Denies chest pain, shortness of breath, calf pain/swelling, fevers, chills, lightheadedness. Objective Data Objective Data Vital Signs: Vital Signs Temp Pulse Resp BP Pulse Ox O2 Del Method 97.7 F L 80 16 108/73 98 Room Air 07/08/23 07:19 07/08/23 07:19 07/08/23 07:19 07/08/23 07:19 07/08/23 07:39 07/08/23 07:39 Oxygen Delivery Method Room Air Weight: 176 lb 2.389 oz Body Mass Index (BMI) 25.2 Intake & Output: Intake and Output for Last 24 Hours 07/06/23 07/07/23 07/08/23 23:59 23:59 23:59 Intake Total 6.83 / 6.83 3430.20 / 3430.20 Output Total 3500 / 3500 400 / 400 Balance 6.83 / 6.83 -69.80 / -69.80 -400 / -400 Lab / Micro Data 07/08/23 05:55 Labs: Laboratory Results - last 24 hr 07/08/23 05:55: WBC 13.4 H, RBC 2.75 L, Hgb 9.0 L, Hct 27.5 L, MCV 100.0 H, MCH 32.7 H, MCHC 32.7, RDW Std Deviation 48.5 H, RDW Coeff of Janice 13.5, Plt Count 108 L, MPV 8.5 Physical Exam Const alert and oriented x3 HEENT normocephalic Eyes PERRL Neck full ROM Resp normal respiratory effort GI soft to palpation GI Narrative: FF below U. Dressing dry and intact Palpation: tender other (appropriately) Assessment & Plan (1) Delivery by section: COMMENT: 07/07/23 LTCS breech SM (2) Depression: QUALIFIERS: Depression Type: unspecified Qualified Code(s): F32.A - Depression, unspecified COMMENT: celexa 10mg. stable PLAN: Plan s/p LTCS PPD # 1 1. routine post care 2. breast feeding- support given 3. rh positive 4. rubella immune
--- NOTE | 2023-07-08 08:32 | OP.PCM_ITS ---
Assessment & Plan (1) Breech presentation: (2) Delivery by section: COMMENT: 07/07/23 LTCS breech SM Maternal Data Information AKIN Calculator Estimated Delivery Date Method Current WG Current Estimate 07/21/23 LMP (Certain) 38w 1d Other Estimates 07/21/23 Ultrasound #1 38w 1d Final AKIN Source: LMP Gestational age: 38 Details Operative Information Pre-Operative Diagnosis: see a/p diagnoses Post-Operative Diagnosis: same Indications Narrative: surgeon: Corrine Zavaleta MD Procedure Type: low transverse Type of Anesthesia: Epidural Special Medications: none Drain: Maldonado to straight drain Fluids Replaced: crystalloid Findings Description of Procedure: The patient was placed in the dorsal supine position with leftward tilt. Patient was prepped and draped in the normal sterile fashion. Pfannenstiel skin incision was made with the scalpel and carried through to the underlying layer of fascia with the scalpel. Fascia was nicked in the midline and the incision extended laterally. The rectus bellies were dissected off superiorly and inferiorly with out complication both sharply and bluntly. The peritoneum was entered digitally. The incision was stretched and a low transverse uterine incision was made with the scalpel. The buttox was delivered atraumatically and the right and left legs were swept anteriorly and delivered, followed by the body and the arms which were swept anteriorly and delivered. Gentle traction was placed on the mentum to flex the head which was delivered without complication. the cord was clamped and cut and infant handed off to nurse. The placenta was delivered spontaneously immediately following and was noted to be intact and have a three-vessel cord. The uterus was exteriorized cleared of all clots and debris, and the incision was closed in a double layer closure using #1 Monocryl. floseal placed over right side of incision. The ovaries and fallopian tubes were noted to be within normal limits. The uterus was returned to the maternal abdomen and gutters were cleared of all clots and debris. The peritoneum was closed with 3-0 Monocryl in a running fashion. Fascia was closed with 0 PDS in a running fashion. Subcutaneous tissue was copiously irrigated and the skin was closed with 3-0 Monocryl in a subcuticular fashion. Mepilex dressing was applied without complication. Patient was taken to recovery in stable condition. It was discussed with the patient that based on the clinical information obtained during this encounter, combined with her history, at this time I would recommend vaginal or cesareans for future deliveries if further pregnancies are desired. Placental Delivery Description: Spontaneous Placenta Disposition: [facility] Cord Vessel Description: 3 Vessels Cord Entanglement: - (nuchal 3) Nuchal Cord Compression: With compression Delayed Cord Clamping: No Complications Risks of Surgery Discussed w/Patient: Bleeding, Infection, Need for Future C- Sections and Injury to surrounding structure(s) including bowel and bladder Complications: none Admit VTE Documentation VTE Present on Admission: No VTE Mechan Device Prophylaxis: SCD's Procedures Urinary/Genital [id number]: [id number] Delivery [facility]
[2023-07-08] MEDS: 0.9% Saline Lock 10 ML Syringe IV (08:37)
[2023-07-08] MEDS: Senna/Docusate Sodium 1 Tablet PO (10:19)
--- NOTE | 2023-07-08 11:30 | NURSING ---
Reviewed and agree with student nurse charting that is used for educational and learning purposes.
--- NOTE | 2023-07-08 13:51 | CASEMGMT ---
Social Work Assessment Labor and Delivery Unit Patient [place] [address] Phone number: [phone] Date of Referral: 07/07/23 Time of Referral:? 1236 Referred By: Corrine Zavaleta Date of Intervention: ??07/08/23 Time of Intervention:?1200 Reason for Referral:? history of depression Sw completed chart review and acknowledges social work consult due to maternal history of depression. Sw presented to bedside and introduced self to mother of baby (LANI Kirkland). 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 Sw explained reason for sw involvement, completed psychosocial assessment and had MOB complete [place] Depression Scale. History obtained from: medical records and mother of baby (AMOS)??? Household composition: Currently residing in the home is AMOS and AIME, and now baby girl. MOB denies concerns regarding housing. Patient's parent/guardian status:? ?MOB states that parents met through mutual friends, they have been together for 5 years, for 4. MOB denies concerns of domestic violence or intimate partner violence. MOB states that AIME struggles to support her and her mental health. Medical History: ?MOB states that she had PCOS and struggled with conceiving, and went through several infertility treatments. MOB states that after quitting the treatments they got by surprise, even though they had been trying it was unexpected. AMOS is 1, para 0-now 1. AMOS received routine care with [facility] beginning in first trimester. AMOS was monitored by Maternal Medicine during for intrauterine growth restriction. AMOS went to OB apt on 07/06 and was told that she should be induced at that time due to IUGR. AMOS presented to hospital and started induction. MOB progressed to completion, and then prior to pushing it was discovered that baby was breech. AMOS at that time required delivery. Baby girl, named Peggy Kirkland was born on 07/07/23 weighing 5lb 5oz, and at five minutes of life her was 8. Baby was also discovered to have 3x nuchal cord. MOB states that baby will be followed by Dr. Ramirez for pediatrics. MOB reports that she is breast feeding and it is going ok. Educational Status:?Both parents graduated from high school. MOB states that she obtained an associates degree from [employer] in dairy science. 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 AMOS states that she is able to take off as much time as she needs. 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 Infant Supplies:??AMOS reports that she has obtained all necessary baby items including; car seat, safe sleep space, clothes, diapers, wipes and a breast pump Childcare/Caregiver(s):? MOB states that she will be the primary caregiver to baby, and FOB when he is not farming. MOB states that they have family close by who will be able to provide childcare when necessary. Transportation:??Both parents have their drivers license and reliable forms of transportation. No transportation barriers at this time. Programs/Agencies Involved: ???No agency involvement at this time. Sw encouraged AMOS to get connected to counseling supports due to mental health history and concerns regarding depression/ anxiety Children Services/Legal Issues:??? No former involvement, no issues or concerns warranting referral to be made at this time. Behavioral Health Issues: ??Mental Health History:?AMOS states that AIME does not have any mental health diagnoses. AMOS states that she has been diagnosed with anxiety, and was prescribed citalopram. AMOS states that she was on the medication for a long time, and does not feel as though it is very effective. AMOS states that she feels very overwhelmed at this time due to the delivery not going as she anticipated, being in pain and learning how to care for baby. AMOS completed an [place] Depression Scale and her score was a 16. Sw educated AMOS on her score and discussed appropriate coping skills, and encouraged AMOS to talk to AIME on ways he can be supportive, and encouraged AMOS to get connected community mental health supports. Substance Use History:??AMOS denies substance use prior to and during . Family History: AMOS states that her mom also had anxiety. ? Drug Screens: ??No urine screens observed in chart review. Family/Social Stressors:? AMOS states that her 's family is not very supportive regarding her mental health. MOB states that her mother in law was very dismissive when MOB stated that her delivery was difficult and that she was struggling. MOB states that although her has siblings, sisters and [id number] she is not close with them. MOB states that she also has siblings, however they do not live close to her. MOB agreed that she is somewhat isolated and does not have a lot of natural supports. Support Systems: limited Depression/Shaken Baby/Safe Sleeping:? Sw talked at length regarding baby blues and depression/ anxiety. Sw talked about red flags to be on the lookout for. Sw encouraged MOB to talk to her OBGYN prior to discharge if she is already struggling potentially with . MOB expressed understanding. MOB stated that she may be receptive to looking into a different medication to take that is safe while . Sw educated MOB on shaken baby prevention and ABCs of safe sleep. MOB expressed understanding. ASSESSMENT:? MOB admitted following unexpected delivery. MOB with limited supports in place at this time. 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 MOB states that she will be alone a lot once discharged. MOB states that she would feel more comfortable going home on Thursday when her mom is available to help her at home. MOB made eye contact, but had flat affect from time to time. MOB also became tearful throughout conversation and acknowledging that she is struggling physically due to her delivery and emotionally. MOB encouraged to follow up with counseling supports once discharged from hospital. PLAN:? Sw will remain available throughout MOB hospitalization. Sw to provide MOB with list of resources available to her. ?No other services requested or indicated. Praful Siddiqui, [employer] FARMWORKER, MILIEU COORDINATOR
[2023-07-08] MEDS: Naproxen 500 MG Tablet PO ×2 (14:30→22:17)
[2023-07-08] MEDS: SimETHICONE 80 MG Chewable Tablet PO (16:21)
[2023-07-08] MEDS: oxyCODONE 5 MG Tablet PO ×2 (16:21→20:29)
[2023-07-09 01:55] VITALS: BP 122/86; PULSE 79; RESP 16; TEMP 36.2; O2SAT 97
[2023-07-09] MEDS: Acetaminophen 500 MG Tablet 1000 MG PO ×4 (04:02→22:11)
[2023-07-09] MEDS: oxyCODONE 5 MG Tablet PO ×2 (05:27→14:09)
[2023-07-09] MEDS: Naproxen 500 MG Tablet PO ×3 (06:31→22:11)
[2023-07-09 08:15] VITALS: BP 132/85; PULSE 77; RESP 16; TEMP 36; O2SAT 97
[2023-07-09 08:17] VITALS: PULSE 77; RESP 16
[2023-07-09 09:47] VITALS: TEMP 36.5
[2023-07-09] MEDS: Senna/Docusate Sodium 1 Tablet PO (09:59)
[2023-07-09] MEDS: SimETHICONE 80 MG Chewable Tablet PO (11:12)
--- NOTE | 2023-07-09 12:23 | NURSING ---
This computer networking instructor was present with medication administration by Francisco Lyn student nurse. This nurse also reviewed the documentation completed by the student.
--- NOTE | 2023-07-09 13:28 | PN.OBGYN_ITS ---
Subjective Subjective Patient doing well without complaints. Tolerating PO. Ambulating and voiding without difficulty. feeding well. Denies chest pain, shortness of breath, calf pain/swelling, fevers, chills, lightheadedness. Objective Data Objective Data Vital Signs: Vital Signs Temp Pulse Resp BP Pulse Ox O2 Del Method 97.7 F L 77 16 132/85 H 97 Room Air 07/09/23 09:47 07/09/23 08:17 07/09/23 08:17 07/09/23 08:15 07/09/23 08:15 07/09/23 08:17 Oxygen Delivery Method Room Air Weight: 176 lb 2.389 oz Body Mass Index (BMI) 25.2 Intake & Output: Intake and Output for Last 24 Hours 07/07/23 07/08/23 07/09/23 23:59 23:59 23:59 Intake Total 3430.20 / 3430.20 Output Total 3500 / 3500 1200 / 1200 Balance -69.80 / -69.80 -1200 / -1200 Lab / Micro Data 07/08/23 05:55 ROS Constitutional Constitutional: Reports systems reviewed and no addt'l complaints, except as doc umented Cardiovascular Cardiovascular: Reports systems reviewed and no addt'l complaints, except as documented Respiratory/Chest Respiratory/Chest: Reports systems reviewed and no addt'l complaints, except as documented Gastrointestinal Gastrointestinal: Reports systems reviewed and no addt'l complaints, except as documented Physical Exam Const alert, oriented x3 and no apparent distress HEENT Head and Scalp: atraumatic Resp normal respiratory effort GI soft to palpation and non-tender Inspection: incision intact, healing well and drainage (none) Bimanual Exam - Vag & Uterus: uterus non-tender Uterus Palpation: uterus fundus firm (below Umbilicus) Assessment & Plan (1) Delivery by section: COMMENT: 07/07/23 LTCS breech SM (2) Breech presentation: (3) Depression: QUALIFIERS: Depression Type: unspecified Qualified Code(s): F32.A - Depression, unspecified COMMENT: celexa 10mg. stable PLAN: Plan s/p LTCS PPD # 2 1. routine post care 2. breast feeding- support given 3. rh positive 4. rubella immune
[2023-07-09 14:11] VITALS: BP 147/87; PULSE 86; RESP 16; TEMP 36.8; O2SAT 98
[2023-07-09 19:56] VITALS: BP 120/73; PULSE 79; RESP 16; TEMP 36.8; O2SAT 97
[2023-07-10 02:34] VITALS: BP 139/88; PULSE 69; RESP 16; TEMP 36.8; O2SAT 97
[2023-07-10] MEDS: Acetaminophen 500 MG Tablet 1000 MG PO ×2 (04:51→09:49)
[2023-07-10] MEDS: Naproxen 500 MG Tablet PO (06:30)
[2023-07-10 07:49] VITALS: BP 126/57; PULSE 80; RESP 15; TEMP 36.6; O2SAT 99
--- NOTE | 2023-07-10 08:22 | PCM.PN.OB ---
Subjective Subjective Patient doing well without complaints. Tolerating PO. Ambulating and voiding without difficulty. Feeding well. Denies chest pain, shortness of breath, calf pain/swelling, fevers, chills, lightheadedness. Objective Data Objective Data Vital Signs: Vital Signs Temp Pulse Resp BP Pulse Ox O2 Del Method 98 F 80 15 126/57 H 99 Room Air 07/10/23 07:49 07/10/23 07:49 07/10/23 07:49 07/10/23 07:49 07/10/23 07:49 07/10/23 07:49 Oxygen Delivery Method Room Air Weight: 176 lb 2.389 oz Body Mass Index (BMI) 25.2 Intake & Output: Intake and Output for Last 24 Hours 07/08/23 07/09/23 07/10/23 23:59 23:59 23:59 Output Total 1200 / 1200 Balance -1200 / -1200 Lab / Micro Data 07/08/23 05:55 Physical Exam Const alert, oriented x3 and no apparent distress HEENT Head and Scalp: atraumatic Resp normal respiratory effort GI soft to palpation and non-tender Inspection: incision intact, healing well and drainage (none) Bimanual Exam - Vag & Uterus: uterus non-tender Uterus Palpation: uterus fundus firm (below Umbilicus) Assessment & Plan (1) Breech presentation: (2) Delivery by section: COMMENT: 07/07/23 LT breech SM (3) Depression: QUALIFIERS: Depression Type: unspecified Qualified Code(s): F32.A - Depression, unspecified COMMENT: celexa 10mg. stable PLAN: Plan s/p LT PPD # 3 1. routine post care 2. breast feeding- support given 3. rh positive 4. rubella immune 5. d/c home today
--- NOTE | 2023-07-10 08:24 | PCM.DC.SUM ---
Providers Date of Admission: 07/06/23 Primary Care Physician: Kerri Cardoza [facility] Reason For Visit: PRIMARY C SECTION Diagnosis Discharge Diagnosis (1) Breech presentation: Status: Acute Code(s): O32.1XX0 - Maternal care for breech presentation, not applicable or unspecified (2) Delivery by section: Status: Acute (3) Depression: Status: Acute Code(s): F32.A - Depression, unspecified Qualifiers: Depression Type: unspecified Qualified Code(s): F32.A - Depression, unspecified Plan s/p LTCS PPD # 3 1. routine post care 2. breast feeding- support given 3. rh positive 4. rubella immune 5. d/c home today Medications at Discharge Home Medications prenat.vits,nancy,[id number] 1 tab PO DAILY 12/10/22 ondansetron HCl 4 mg tablet 4 mg PO Q6H PRN nausea and vomiting #60 tabs 12/18/22 ondansetron 4 mg disintegrating tablet 4 mg PO Q6H PRN nausea and vomiting #60 tabs 06/22/23 famotidine 20 mg tablet (Pepcid) 10 mg PO DAILY 07/06/23 Hospital Course Operations section Summary of Care Provided Hospital Course: induction of labor, flipped to breech presentation c/s. Physical Exam Const alert, oriented x3 and no apparent distress HEENT Head and Scalp: atraumatic Resp normal respiratory effort GI soft to palpation and non-tender Inspection: incision intact, healing well and drainage (none) Bimanual Exam - Vag & Uterus: uterus non-tender Uterus Palpation: uterus fundus firm (below Umbilicus) Weight / BMI Weight Weight: 176 lb 2.389 oz Body Mass Index (BMI) 25.2 ABG / Lab / Microbiology Data 07/08/23 05:55 D/C Instructions Discharge Diet: No restrictions Discharge Activity: May Not Drive (2 weeks) May resume sexual activity in: 4-6 weeks Weight Bearing Status: Weight bearing as tolerated Call your doctor if your incision/area has: Continuous Slow Oozing, Sudden Increased Bleeding, Increased Pain/ Swelling, Increased Redness, Foul Smelling Discharge and Swelling at the incision site Call your doctor if you observe: Fever of 101 or Higher, Inability to urinate, Using more than 1 pad per hour, Shortness of breath, Dizziness, Fainting spells and Chest pain Remove Dressing in: 1 week Please Follow Up With: Corrine Zavaleta MD When: 2 weeks Meaningful Use Info Meaningful Use Diagnoses (Choose all that apply): None applicable Discharge Plan Admission Admit Date/Time: 07/06/23 16:15 Attending Provider: Corrine Zavaleta Primary Care Provider: Kerri Cardoza Discharge Orders/Prescriptions Prescriptions: No Action prenat.vits,nancy,[id number] Tablet 1 tab PO DAILY ondansetron HCl 4 mg tablet 4 mg PO Q6H PRN (Reason: nausea and vomiting) Qty: 60 3RF famotidine [Pepcid] 20 mg tablet 10 mg PO DAILY ondansetron 4 mg tablet,disintegrating 4 mg PO Q6H PRN (Reason: nausea and vomiting) Qty: 60 1RF Referrals / Follow Up: Kerri Cardoza, [facility] [Primary Care Provider] - Disposition Disposition (needs filled in before D/C Order can be placed): Home, Self Care
[2023-07-10] MEDS: SimETHICONE 80 MG Chewable Tablet PO (09:00)
[2023-07-10] MEDS: Senna/Docusate Sodium 1 Tablet PO (09:01)
[2023-07-10 15:58] LABS: Pathology Specimen OB SEE PATHOLOGY REPORT
== END 2023-07-10 10:15 | disposition home or self-care (01) | DRG 788 ==
PROVIDERS: Advanced Practice Midwife; Registered Nurse; Admitting Provider Obstetrics & Gynecology; PCP Nurse Practitioner Family; Visit Provider Obstetrics & Gynecology
DX: O36.5930 Maternal care for other known or suspected poor fetal growth, third trimester, not applicable or unspecified (principal); F32.A Depression, unspecified; O69.2XX0 Labor and delivery complicated by other cord entanglement, with compression, not applicable or unspecified; O99.344 Other mental disorders complicating childbirth; O32.1XX0 Maternal care for breech presentation, not applicable or unspecified; Z37.0 Single live birth; Z3A.37 37 weeks gestation of pregnancy
CPT/HCPCS: 59025; 59050; 76815; 85025; 85027; 86780; 86850; 86900; 86901; 88307; 99221; J7120; A4216; G0378; J2405

== ENCOUNTER → 2024-09-12 | Outpatient (CLI) | payer OTHER, SELFPAY ==
[2024-09-12 13:29] LABS: Absolute Lymphocyte Count 1.64 X10^3/uL (0.83-4.51); Absolute Neutrophil Count 2.1 X10^3/uL (2.0-7.7); Basophil# 0.04 X10^3/uL; Eosinophil# 0.04 X10^3/uL; Hematocrit 36.7 % (37-47); Hemoglobin 12.4 g/dL (12.0-15.0); Lymphocyte # 1.64 X10^3/ul (0.83-4.51); Lymphocyte % 39.1 % (19-41); Mean Corp Hgb Conc 33.8 g/dL (32-36); Mean Corpuscular Hgb 31.5 pg (27.0-32.0); Mean Corpuscular Volume 93.1 fL (81-99); Mean Platelet Vol. 9.2 fl (6.2-12.0); Monocyte% 9.5 % (0-10); NRBC Flagged by Analyzer 0 % (0-5); Neutrophil # 2.06 X10^3/uL (2.7-7.7); Neutrophil % 49.2 % (47-70); Platelet Count 186 K/mm3 (150-450); RBC Distribution Width SD 41.5 fl (35.1-43.9); Red Blood Count 3.94 M/mm3 (4.2-5.4); White Blood Count 4.2 K/mm3 (4.4-11.0)
== END | disposition home or self-care (01) ==
PROVIDERS: PCP Nurse Practitioner Family; Referring Provider Obstetrics & Gynecology; Visit Provider Obstetrics & Gynecology
DX: N93.9 Abnormal uterine and vaginal bleeding, unspecified (principal)
CPT/HCPCS: 36415; 84443; 85025

== ENCOUNTER → 2025-05-22 | Outpatient (CLI) | payer OTHER, SELFPAY ==
[2025-05-25 05:07] LABS: Chlamydia By Nucleic Acid AMP Negative (Negative); Gonococcus By Nucleic Acid AMP Negative (Negative)
== END | disposition home or self-care (01) ==
LOC: LABSPEC 13:26
PROVIDERS: PCP Nurse Practitioner Family; Referring Provider Obstetrics & Gynecology; Visit Provider Obstetrics & Gynecology
DX: O09.90 Supervision of high risk pregnancy, unspecified, unspecified trimester (principal); Z3A.00 Weeks of gestation of pregnancy not specified
CPT/HCPCS: 87086; 87088; 87491; 87591

== ENCOUNTER → 2025-06-23 | Outpatient (CLI) | payer OTHER, SELFPAY ==
[2025-06-23 12:42] LABS: Hematocrit 36.1 % (37-47); Hemoglobin 12.7 g/dL (12.0-15.0); Immature Granulocytes Count 0.010 X10^3/uL (0.0-0.0); Mean Corp Hgb Conc 35.2 g/dL (32-36); Mean Corpuscular Volume 93.5 fL (81-99); Mean Platelet Vol. 8.5 fl (6.2-12.0); NRBC Flagged by Analyzer 0 % (0-5); Platelet Count 207 K/mm3 (150-450); RBC Distribution Width CV 13.3 % (11.6-14.6); RBC Distribution Width SD 45.0 fl (35.1-43.9); Red Blood Count 3.86 M/mm3 (4.2-5.4); White Blood Count 5.9 K/mm3 (4.4-11.0)
[2025-06-23 13:33] LABS: HIV Nonreactive (Nonreactive); Hepatitis B Surface Antigen Nonreactive (Nonreactive); Hepatitis C Antibody Nonreactive (Nonreactive); Syphilis Antibodies Nonreactive (Nonreactive)
== END | disposition home or self-care (01) ==
PROVIDERS: PCP Nurse Practitioner Family; Referring Provider Obstetrics & Gynecology; Visit Provider Obstetrics & Gynecology
DX: O09.90 Supervision of high risk pregnancy, unspecified, unspecified trimester (principal); Z3A.00 Weeks of gestation of pregnancy not specified
CPT/HCPCS: 36415; 85025; 86703; 86762; 86780; 86803; 86850; 86900; 86901; 87340